=== PATIENT | male | born 1970 | race Two or more races ===

== ENCOUNTER → 2020-08-11 | Outpatient (CLI) | payer OTHER | END | disposition home or self-care (01) | LOC: OFIC 805 10:40 | PROVIDERS: ATTEND Otolaryngology Otology & Neurotology | DX: H60.392 Other infective otitis externa, left ear (principal); H92.02 Otalgia, left ear; H61.22 Impacted cerumen, left ear ==

== ENCOUNTER 2020-08-16 08:40 | Outpatient (CLI) | payer OTHER | END 2020-08-16 10:59 | disposition home or self-care (01) | LOC: OFIC 805 08:40 | PROVIDERS: ATTEND Otolaryngology Otology & Neurotology | DX: H60.391 Other infective otitis externa, right ear (principal); H92.01 Otalgia, right ear; H61.21 Impacted cerumen, right ear ==